=== PATIENT | male | born 1940 | race Caucasian/White ===

== ENCOUNTER 2017-04-29 11:12 | Day surgery (SDC) | payer MEDICARE, OTHER ==
[~2017-04-29 11:12] MED LIST: RINGERS SOLUTION,LACTATED 1,000 ML IV PRN; ceFAZolin SODIUM 2 GM in DEXTROSE 5 % IN WATER 50 ML IV PRN
[2017-04-29] MEDS ORDERED: RINGERS SOLUTION,LACTATED 1,000 ML IV ONE (11:30)
[2017-04-29] MEDS ORDERED: BUPIVACAINE HCL/EPINEPHRINE 50 ML VIAL IJ ONE ×2 (12:30)
[2017-04-29] MEDS ORDERED: oxyCODONE HCL/ACETAMINOPHEN 1 TAB TABLET PO ONE (13:28)
[2017-04-29] MEDS ORDERED: RINGERS SOLUTION,LACTATED 1,000 ML IV PRN (13:28)
--- NOTE | 2017-04-29 13:57 | OR ---
Operative Report - Dictated Report Narrative: Date of operation: 04/29/2017 Preoperative diagnosis: Right inguinal hernia Postoperative diagnosis: Indirect right inguinal hernia Operation: Repair of indirect right inguinal hernia (high ligation and Bard mesh patch) Surgeon: YARIEL Cueto MD Anesthesia: Gen. LMA Cuco De La Rosa CRNA Indications for procedure: The patient is a 76-year-old male referred by Dr. Gr. The patient has an enlarging and increasingly symptomatic right inguinal hernia. He is had a previous repair of an indirect left inguinal hernia. Findings: Indirect right inguinal hernia Narrative of procedure: The patient was identified preoperatively, the surgical site was marked, and prior to the administration of anesthetic a multidisciplinary timeout was observed. The patient was placed supine, SCDs were applied, and 2 g of intravenous Ancef administered. Gen. LMA Anesthetic was administered. The patient's abdomen and genitalia were prepped with Betadine solution and DuraPrep, and the right groin isolated with 4 sterile towels. The remainder of the patient was covered with a sterile disposable drape. A transverse skin incision was made over the midportion of the right inguinal canal. Dissection was carried through subcutaneous tissue with electrocautery until the fascia of the external oblique aponeurosis was encountered. This was incised in the direction of its fibers down to and including the external inguinal ring. The ilioinguinal nerve was identified and protected throughout the procedure. Cord structures were encircled at the pubic tubercle, and a Elberta drain placed for traction. Inspection of the inguinal floor revealed to be sound out to the inferior epigastric vessels. Inspection of the cord revealed an indirect hernia sac. The sac was elevated and opened. A forefinger was inserted and the sac dissected free from the cord structures back to the internal inguinal ring where properitoneal fat was identified. The neck of the sac was transfixed with a 0 Ethibond suture. The sac was amputated. The neck of the sac was redirected superiorly with the same suture of 0 Ethibond. A tailored mesh patch was placed in the inguinal floor and secured circumferentially to the pubic tubercle, along the conjoined tendon , and along the shelving border of the inguinal ligament with interrupted sutures of 0 Ethibond. The wings of the patch were wrapped around the cord structures and secured laterally with additional interrupted sutures of 0 Ethibond. The new internal inguinal ring was found to be of sufficient caliber to admit cord structures without undue constriction. The wound was inspected for hemostasis, which appeared complete. The cord structures and ilioinguinal nerve were returned to an anatomic position. After receiving a correct sponge needle and instrument count attention was turned to closing the wound. The external oblique aponeurosis was approximated with a running suture of 2-0 Vicryl. Subcutaneous tissues were approximated with interrupted sutures of 2-0 chromic. The skin was secured with a running subcuticular suture of 4-0 Vicryl. The operative site was washed and dried. A dressing of Dermabond, folded 4 x 4, and Medipore tape was applied. The scrotum was checked to ensure that the testicles were in anatomic position. The operative procedure was terminated at this point. The patient tolerated the anesthetic and procedure well without complication. There was no measurable blood loss. No specimen was submitted. 0.5% Marcaine with epinephrine was used for local anesthetic infiltration. The patient was transferred to the recovery room awake, extubated , and in stable condition. The patient remained stable throughout a period of postoperative observation. He was able to tolerate PO intake. His pain was controlled with po Percocet. He was able to ambulate without assistance. The dressing remained dry. He was discharged home with instructions not to lift and not to drive. He should keep the wound dry for 48 hours but then may shower. The patient was given a prescription for Percocet 5/325 mg #30 1-2 po Q4-6hrs prn pain. The patient has phone numbers to call for questions or prn signs of wound infection or hematoma. A return office appointment was made for 1 week. Reviewed and electronically signed
[2017-04-29 15:21] VITALS: BP 142/75
== END 2017-04-29 11:13 | disposition home or self-care (01) ==
LOC: AMB 11:12
PROVIDERS: ATTEND Surgery
PROC: 0YU50JZ Supplement Right Inguinal Region with Synthetic Substitute, Open Approach (ICD-10-PCS; principal; 2017-04-29 12:30)
DX: K40.90 Unilateral inguinal hernia, without obstruction or gangrene, not specified as recurrent (principal); I10 Essential (primary) hypertension; E78.5 Hyperlipidemia, unspecified; F17.200 Nicotine dependence, unspecified, uncomplicated; Z68.29 Body mass index [BMI] 29.0-29.9, adult